=== PATIENT | female | born 1995 | race Caucasian/White ===

== ENCOUNTER 2023-09-27 17:08 | Emergency (ER) | payer BC, SELFPAY ==
[2023-09-27 17:10] VITALS: BP 123/90
[2023-09-27 17:24] VITALS: BP 131/74
[2023-09-27 17:25] VITALS: BMI 32.4
[2023-09-27 18:00] VITALS: BP 125/107
--- NOTE | 2023-09-27 18:16 | ED.GENMED ---
History of Present Illness
<ELAINE Hoyt - Last Filed: 09/27/23 21:42>
General
Chief Complaint: Abdominal Symptoms
Source: patient
Exam Limitations: none
Time Seen by Provider: 09/27/23 17:54
Travel History
Have you had any contact with someone who has COVID-19?: No
Do you have any symptoms of coronavirus? Fever > 100 degrees, chills, cough, shortness of breath, sore throat, loss of taste or smell, muscle aches, or headache?: No
History of Present Illness
History of Present Illness:
This is a 27 year old female that comes in with c/o abd pain and diarrhea. States that she has had diarrhea for the past 5 days. States that she went to see the PCP today and she felt that she was dehydrated and that she wanted her checked for
C-diff. State that she had taken Amoxicillin around the holidays for a sinus infection. States that she has pain in the abd which started on Sunday. States that she is occasionally nauseated and has been having diarrhea 12-14 times daily. States
that she also has a headache. Denies any fever, chills, chest pain, SOB, vomiting, dizziness, urinary burning.
Past History
<ELAINE Hoyt - Last Filed: 09/27/23 21:42>
Past History
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
ED Past Surgical History: None
Social History
Tobacco: Non-smoker
Alcohol: Occasional
Personal: Single
Living: with family
Review of Systems
<ELAINE Hoyt - Last Filed: 09/27/23 21:42>
Review of Systems
All Other Systems: ROS reviewed and negative except as documented in HPI and ROS
Constitutional: Reports no symptoms; Denies fever or chills
EENT: Reports no symptoms
Respiratory: Reports no symptoms; Denies cough or trouble breathing
Cardiac: Reports no symptoms; Denies chest pain
ABD/GI: Reports abdominal pain, nausea and diarrhea; Denies vomiting
: Reports no symptoms; Denies dysuria, frequency or urgency
Musculoskeletal: Reports no symptoms
Skin: Reports no symptoms
Neurological: Reports headache; Denies dizzy
Psychiatric: Reports no symptoms
Phy Exam
<ELAINE Hoyt - Last Filed: 09/27/23 21:42>
General Physical Exam
General Presentation: no apparent distress (Refused pain medication at this time. )
General age: appears stated age
General Skin: warm and dry
General Habitus: normal
General Mental: alert
General Hydration: appears well hydrated
ENT Exam
ENT Exam: TM's normal, pharynx normal and neck supple
Eye Exam
Eye Exam: EOMI
Cardiovascular Exam
Cardiovascular Exam: regular rate/rhythm, no edema, no murmur and normal peripheral pulses
Pulmonary Exam
Pulmonary Exam: lungs clear, no respiratory distress, no rales, chest non tender, no crackles, no rhonchi, no wheezing and no cough
Gastrointestinal Exam
Gastrointestinal Exam: normal bowel sounds, soft, no organomegaly, no pulsatile mass, non distended and tender (Left side abd lower abd tenderness with palpation)
Musculoskeletal Exam
Musculoskeletal Exam: full ROM and no edema
Skin Exam
Skin Exam: normal color, warm/dry, no rash and no petechia
Psychiatric Exam
Psychiatric Exam: normal mood/affect
Course
<ELAINE Hoyt - Last Filed: 09/27/23 21:42>
Orders/Labs/Results
Orders:
Orders
09/27/23 18:05
0.9% Sodium Chloride 1000 ml [Nss] 1,000 ml IV BOLUS
Test Result ONCE
09/27/23 18:06
CT Abd/Pel (IV only)-DH only Urgent
Comment:
Reason For Exam: Left sided abd pain,
09/27/23 18:17
Complete Blood Count/With Diff Urgent
Comprehensive Metabolic Panel Urgent
HCG, Serum Qualitative Screen Urgent
Lipase Urgent
Urinalysis Reflex To Culture Urgent
Date Specimen was Collected: 09/27/23
Time Specimen was Collected: 18:09
09/27/23 19:33
Stool Culture Urgent
SINA Source: Feces/Stool
Specimen Description:
Date Specimen was Collected: 09/27/23
Time Specimen was Collected: 19:31
Stool For WBC Urgent
SINA Source: Feces/Stool
Specimen Description:
Date Specimen was Collected: 09/27/23
Time Specimen was Collected: 19:31
09/27/23 19:34
STOOL [C difficile Antigen & Toxins] Urgent
SINA Source: Feces/Stool
Specimen Description:
Date Specimen was Collected: 09/27/23
Time Specimen was Collected: 19:31
09/27/23 21:35
Vancomycin HCl [Firvanq] 125 mg PO NOW STA
Abnormal Lab Results
09/27/23
18:17
WBC 13.4 H 10^3/uL
(4.8-10.8)
MCV 79.2 L fL
(81.0-99.0)
Absolute Neuts (auto) 9.2 H 10^3/uL
(1.4-6.5)
Absolute Monos (auto) 1.1 H 10^3/uL
(0.1-0.6)
Creatinine 0.4 L mg/dL
(0.6-1.0)
Glucose 69 L mg/dl
(70-99)
09/27/23 18:17
09/27/23 18:17
Leukocytosis, Glucose nonfasting. Urine negative for infection. HCG negative. Stool positive for C-diff
Vital Signs
Initial and Last Documented VS:
Initial Vital Signs
Temp Pulse Resp BP Pulse Ox
98.7 F 97 16 123/90 96
09/27/23 17:10 09/27/23 17:10 09/27/23 17:10 09/27/23 17:10 09/27/23 17:10
Last Documented Vital Signs
Temp Pulse Resp BP Pulse Ox
98.7 F 97 16 134/82 97
09/27/23 17:10 09/27/23 17:10 09/27/23 17:10 09/27/23 22:00 09/27/23 20:49
<Bryant Moreno, - Last Filed: 09/27/23 22:48>
Orders/Labs/Results
Orders:
Orders
09/27/23 18:05
0.9% Sodium Chloride 1000 ml [Nss] 1,000 ml IV BOLUS
Test Result ONCE
09/27/23 18:06
CT Abd/Pel (IV only)-DH only Urgent
Comment:
Reason For Exam: Left sided abd pain,
09/27/23 18:17
Complete Blood Count/With Diff Urgent
Comprehensive Metabolic Panel Urgent
HCG, Serum Qualitative Screen Urgent
Lipase Urgent
Urinalysis Reflex To Culture Urgent
Date Specimen was Collected: 09/27/23
Time Specimen was Collected: 18:09
09/27/23 19:33
Stool Culture Urgent
SINA Source: Feces/Stool
Specimen Description:
Date Specimen was Collected: 09/27/23
Time Specimen was Collected: 19:31
Stool For WBC Urgent
SINA Source: Feces/Stool
Specimen Description:
Date Specimen was Collected: 09/27/23
Time Specimen was Collected: 19:31
09/27/23 19:34
STOOL [C difficile Antigen & Toxins] Urgent
SINA Source: Feces/Stool
Specimen Description:
Date Specimen was Collected: 09/27/23
Time Specimen was Collected: 19:31
09/27/23 21:35
Vancomycin HCl [Firvanq] 125 mg PO NOW STA
Abnormal Lab Results
09/27/23
18:17
WBC 13.4 H 10^3/uL
(4.8-10.8)
MCV 79.2 L fL
(81.0-99.0)
Absolute Neuts (auto) 9.2 H 10^3/uL
(1.4-6.5)
Absolute Monos (auto) 1.1 H 10^3/uL
(0.1-0.6)
Creatinine 0.4 L mg/dL
(0.6-1.0)
Glucose 69 L mg/dl
(70-99)
09/27/23 18:17
09/27/23 18:17
Vital Signs
Initial and Last Documented VS:
Initial Vital Signs
Temp Pulse Resp BP Pulse Ox
98.7 F 97 16 123/90 96
09/27/23 17:10 09/27/23 17:10 09/27/23 17:10 09/27/23 17:10 09/27/23 17:10
Last Documented Vital Signs
Temp Pulse Resp BP Pulse Ox
98.7 F 97 16 134/82 97
09/27/23 17:10 09/27/23 17:10 09/27/23 17:10 09/27/23 22:00 09/27/23 20:49
Katlt;ELAINE Hoyt - Last Filed: 09/27/23 21:42>
MDM/Problems Addressed
Differential Diagnosis Includes:
Colitis, Diverticulitis
MDM/Problems Addressed:
This is a 27 year old female that comes in with c/o abd pain and diarrhea for the past 5 days. Patient went to the PCP today and was sent in for evaluation.
Will get labs and CT scan.
Back int see patient. Explained that she is positive for C-diff. Will start patient on Vancomycin and explained that she will take this Q6 hours for the next 14 days. Patient to follow up with the family doctor and with the GI specialist for
further evaluation. Will also give patient a prescription for Zofran to help with any nausea or vomiting. Patient to return with any fever, diarrhea that is not controlled or any other concerns.
Chronic conditions affecting care:
NA
Acute Exacerbation and/or Progression of Chronic Illness:
NA
<ELAINE Hoyt - Last Filed: 09/27/23 21:42>
*Radiology
Radiology exam reviewed: radiology read reviewed (CT - Mild small bowl wall thickening in the eft hemiabdomen suspicious for a mild infections/inflammatory enteritis. Borderline enlarge right lower quadrant mesenteric lymph nodes, likely reactive.
Cholelithiasis. )
*EKG
Interpreted by ED Provider?: NA
Rate: EKG- N/A
*Filler Shredder Helper Interpretation
Rate: Filler Shredder Helper- N/A
*Critical Care Note
Total Time (30-74mins, 75-104mins- exclusive of procedures): Not Applicable
ED Attending Note
<ELAINE Hoyt - Last Filed: 09/27/23 21:42>
-
Portions of this chart may have been created with voice recognition software.� Occasional wrong word or��sound alike� substitutions may have occurred due to the inherent limitations of voice recognition software.
<Bryant Moreno DO - Last Filed: 09/27/23 22:48>
ED Attending Note
I performed the substantive portion of visit, reviewed & personally made and approve the management plan that is documented in note by myself or MAHENDRA.: Yes
ED Attending Note:
1st time with cdiff...use PO vanco. outpt f/u. case d/w [facility]/.
Discharge Plan
Departure
Patient Disposition: Home (Routine Discharge)
Date of Disposition: 09/27/23
Time of Disposition: 21:33
Patient with high blood pressure during this ER visit?: No
Condition: Good
Covid-19: Not Applicable
Discharge Problem:
C. difficile diarrhea
Instructions: Clostridioides difficile (DC)
Prescriptions:
New
vancomycin 125 mg capsule
125 mg PO Q6H Qty: 56 0RF
ondansetron 4 mg tablet,disintegrating
4 mg PO Q8H PRN (Reason: nausea and vomiting) Qty: 10 0RF
Referrals:
Joceline Chong MD [Active] - Call in 1-3 days for appt
Mouna Capellan DO [Family Provider] - Call in 1-3 days for appt
Activity Restrictions/Additional Instructions:
As discussed, you are positive for C-diff. You have been started on Vancomycin which you will take every 6 hours for the next 14 days. Please increase your water intake to 8-8oz glasses daily. Banana's are binding. Chicken, rice and potatoes are
easily digested. Please stay away form Milk and milk products as they are hard for the gut to digest and will keep the diarrhea going. You should started to decrease in the amount of diarrhea that you have having. Please follow up with the family
doctor and the GI specialist for further evaluation if needed. IF YOU HAVE FEVER, ARE UNABLE TO KEEP ANYTHING DOWN OR THE DIARRHEA IS GETTING WORSE, PLEASE RETURN TO THE EMERGENCY ROOM.
Interventions
Interventions:
*Risk Screen - Suicide Last Done: 09/27/23 17:25
*General Assessment Last Done: 09/27/23 17:10
*Neglect/Abuse Screening Last Done: 09/27/23 17:25
ED- Fall Risk Assessment Last Done: 09/27/23 17:25
*ED COVID-19 Vaccine History Last Done: 09/27/23 17:10
*Nursing Disposition Last Done: 09/27/23 22:02
HG-Zhcrcf-Tvvecbfztd Assessment Last Done: 09/27/23 17:25
Discharge Date and Time
Discharge Date/Time: 09/27/23 22:04
[2023-09-27] MEDS: NSS 1000 IV (18:19)
[2023-09-27 18:40] LABS: % Basophils 0.4 % (0-2); % Eosinophils 1.6 % (0-6); % Immature Granulocytes 0.2 % (0-0.5); % Lymphocytes 20.7 % (20.5-51.1); % Monocytes 8.3 % (1.7-9.3); % Neutrophils 68.8 % (42.2-75.2); Absolute Basophils 0.1 10^3/uL (0-0.2); Absolute Eosinophils 0.2 10^3/uL (0-0.7); Absolute Lymphocytes 2.8 10^3/uL (1.2-3.4); Absolute Monocytes 1.1 10^3/uL (0.1-0.6); Absolute Neutrophils 9.2 10^3/uL (1.4-6.5); Hematocrit 38.9 % (37.0-47.0); Hemoglobin 13.9 g/dL (12.0-16.0); Mean Corp Hgb Conc. 35.7 g/dL (33.0-37.0); Mean Corpuscular Hgb 28.3 pg (27.0-31.0); Mean Corpuscular Volume 79.2 fL (81.0-99.0); Mean Platelet Volume 9.9 fL (7.4-10.4); Nucleated Red Blood Cells % 0 %; Platelet Count 365 10^3/uL (130-400); Red Blood Cell Count 4.91 10^6/uL (4.20-5.40); Red Cell Dist. Width 12.8 % (11.5-14.5); White Blood Cell Count 13.4 10^3/uL (4.8-10.8)
[2023-09-27 18:46] LABS: HCG, Serum Qualitative Screen Negative; Urine Albumin Negative (Neg - Trace); Urine Bilirubin Negative (Negative); Urine Character Slightly Cloudy (Clear); Urine Color Yellow; Urine Glucose Negative (Negative); Urine Ketone Negative (Negative); Urine Leukocyte Negative (Negative); Urine Nitrite Negative (Negative); Urine Occult Blood Negative (Negative); Urine Urobilinogen Negative (Neg - 1+); Urine pH 6.5 (5.0-9.0)
[2023-09-27 18:49] LABS: ALT (SGPT) 16 U/L (0-35); AST (SGOT) 25 U/L (14-36); Albumin 4.8 g/dl (3.5-5.0); Alkaline Phosphatase 79 U/L (38-126); Blood Urea Nitrogen 8 mg/dl (7-17); Calcium 9.5 mg/dl (8.4-10.2); Carbon Dioxide 24 mmol/L (22-30); Chloride 104 mmol/L (98-107); Estimated Creatinine Clearance 123 ml/min; Glucose 69 mg/dl (70-99); Lipase 99 U/L (23-300); Potassium 4.6 mmol/L (3.5-5.1); Sodium 138 mmol/L (135-145); Total Bilirubin 0.5 mg/dl (0.2-1.3); Total Protein 7.4 g/dl (6.3-8.2); eGFR > 60.00
[2023-09-27 19:33] VITALS: BP 118/72
[2023-09-27] MEDS: FIRVANQ 125 MG PO (21:49)
[2023-09-27 22:00] VITALS: BP 134/82
== END 2023-09-27 22:04 | disposition home or self-care (01) ==
LOC: EMR 17:08
PROVIDERS: Clinical Nurse Specialist Family Health; EMERGENCY PHYSICIAN Emergency Medicine; FAMILY PHYSICIAN Internal Medicine
DX: R19.7 Diarrhea, unspecified (principal); A04.72 Enterocolitis due to Clostridium difficile, not specified as recurrent; R51.9 Headache, unspecified; R11.0 Nausea; E28.2 Polycystic ovarian syndrome; Z88.2 Allergy status to sulfonamides
CPT/HCPCS: 99285; 96360; 74177; 80053; 81003; 83690; 84703; 85025; 87045; 87046; 87324; 87427; 87449; 89055; Q9967

== ENCOUNTER 2023-10-26 10:10 | Emergency (ER) | payer BC, SELFPAY ==
[2023-10-26 10:34] VITALS: BP 133/93
[2023-10-26 11:03] LABS: % Basophils 0.5 % (0-2); % Eosinophils 2.1 % (0-6); % Immature Granulocytes 0.3 % (0-0.5); % Lymphocytes 19.4 % (20.5-51.1); % Monocytes 6.8 % (1.7-9.3); % Neutrophils 70.9 % (42.2-75.2); Absolute Basophils 0.1 10^3/uL (0-0.2); Absolute Eosinophils 0.3 10^3/uL (0-0.7); Absolute Lymphocytes 2.6 10^3/uL (1.2-3.4); Absolute Monocytes 0.9 10^3/uL (0.1-0.6); Absolute Neutrophils 9.4 10^3/uL (1.4-6.5); Hematocrit 40.5 % (37.0-47.0); Hemoglobin 13.9 g/dL (12.0-16.0); Mean Corp Hgb Conc. 34.3 g/dL (33.0-37.0); Mean Corpuscular Volume 81.5 fL (81.0-99.0); Mean Platelet Volume 9.8 fL (7.4-10.4); Nucleated Red Blood Cells % 0 %; Platelet Count 329 10^3/uL (130-400); Red Blood Cell Count 4.97 10^6/uL (4.20-5.40); Red Cell Dist. Width 13.1 % (11.5-14.5); White Blood Cell Count 13.2 10^3/uL (4.8-10.8)
[2023-10-26 11:05] LABS: HCG, Serum Qualitative Screen Negative
[2023-10-26 11:11] LABS: ALT (SGPT) 14 U/L (0-35); AST (SGOT) 21 U/L (14-36); Albumin 4.5 g/dl (3.5-5.0); Alkaline Phosphatase 76 U/L (38-126); Blood Urea Nitrogen 10 mg/dl (7-17); Calcium 9.3 mg/dl (8.4-10.2); Carbon Dioxide 25 mmol/L (22-30); Chloride 103 mmol/L (98-107); Glucose 94 mg/dl (70-99); Potassium 4.4 mmol/L (3.5-5.1); Sodium 136 mmol/L (135-145); Total Bilirubin 0.6 mg/dl (0.2-1.3); eGFR > 60.00
[2023-10-26 11:59] LABS: Urine Albumin Negative (Neg - Trace); Urine Bilirubin Negative (Negative); Urine Character Clear (Clear); Urine Color Yellow; Urine Glucose Negative (Negative); Urine Ketone Negative (Negative); Urine Leukocyte Trace (Negative); Urine Nitrite Negative (Negative); Urine Occult Blood Negative (Negative); Urine Urobilinogen Negative (Neg - 1+)
--- NOTE | 2023-10-26 12:09 | ED.GENMED ---
History of Present Illness
General
Chief Complaint: Abdominal Pain
Source: patient
Exam Limitations: none
Time Seen by Provider: 10/26/23 12:07
Nursing documentation reviewed up to this point in time: agreed with
Travel History
Have you had any contact with someone who has COVID-19?: No
Do you have any symptoms of coronavirus? Fever > 100 degrees, chills, cough, shortness of breath, sore throat, loss of taste or smell, muscle aches, or headache?: No
History of Present Illness
History of Present Illness:
Patient is a 27-year-old female who presents to the ER complaining of diarrhea. She started Sunday noticing a change in her bowels and last night was up in [place] with 4-5 episodes of mucousy diarrhea. She has a history of C. difficile and was
treated for C. difficile 1 month ago. At that time she was on previous antibiotics. She does report however that the smell reminded her of C. difficile. She denies any recent antibiotic use. She denies any nausea vomiting fever chills. She
complains of mild lower abdominal discomfort/cramping.
In Review of records patient was seen here September 27 she also had a CAT scan which showed mild small bowel thickening of the left Roel abdomen suspicious for noninfectious inflammatory enteritis
Past History
Past History
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
ED Past Surgical History: None
Social History
Tobacco: Non-smoker
Alcohol: Occasional
Personal: Single
Living: with family
Review of Systems
Review of Systems
Allergies reviewed?: Yes
All Other Systems: ROS reviewed and negative except as documented in HPI and ROS
Constitutional: Reports no symptoms; Denies fever, fatigue or chills
EENT: Reports no symptoms
Respiratory: Reports no symptoms
Cardiac: Reports no symptoms
ABD/GI: Reports abdominal pain (lower abd discomfort/cramping ) and diarrhea; Denies nausea or vomiting
: Reports no symptoms; Denies flank pain, urgency or discharge
Musculoskeletal: Reports no symptoms
Skin: Reports no symptoms
Neurological: Reports no symptoms
Psychiatric: Reports no symptoms
Phy Exam
General Physical Exam
General Presentation: no apparent distress
General age: appears stated age
General Skin: warm and dry
General Habitus: normal
General Mental: alert
General Hydration: appears well hydrated
Gastrointestinal Exam
Gastrointestinal Exam: non tender and soft
Neurological Exam
Neurological Exam: alert and oriented x3
Musculoskeletal Exam
Musculoskeletal Exam: full ROM
Skin Exam
Skin Exam: normal color and warm/dry
Psychiatric Exam
Psychiatric Exam: normal mood/affect
Course
Orders/Labs/Results
Orders:
Orders
10/26/23 10:39
Test Result ONCE
10/26/23 10:47
CBC/With Diff [Complete Blood Count/With Diff] Urgent
CMP [Comprehensive Metabolic Panel] Urgent
HCG, Serum Qualitative Screen Urgent
10/26/23 11:40
Urinalysis Reflex To Culture Urgent
Date Specimen was Collected: 10/26/23
Time Specimen was Collected: 11:39
Urine Microscopic Reflex Cult Urgent
C difficile Antigen & Toxins Urgent
SINA Source: Feces/Stool
Specimen Description:
Date Specimen was Collected: 10/26/23
Time Specimen was Collected: 10:52
Stool Culture Urgent
SINA Source: Feces/Stool
Specimen Description:
Date Specimen was Collected: 10/26/23
Time Specimen was Collected: 10:52
Urine Culture Urgent
SINA Source: U
Specimen Description:
Date Specimen was Collected: 10/26/23
Time Specimen was Collected: 11:39
10/26/23 14:37
0.9% Sodium Chloride 1000 ml [Nss] 1,000 ml IV BOLUS
Abnormal Lab Results
10/26/23 10/26/23
10:47 11:40
WBC 13.2 H 10^3/uL
(4.8-10.8)
Absolute Neuts (auto) 9.4 H 10^3/uL
(1.4-6.5)
Absolute Monos (auto) 0.9 H 10^3/uL
(0.1-0.6)
Lymphocytes % 19.4 L %
(20.5-51.1)
Creatinine 0.5 L mg/dL
(0.6-1.0)
Leukocyte Esterase Rfl Trace A
(Negative)
Urine Bacteria (Reflex) Moderate A
(Negative)
10/26/23 10:47
10/26/23 10:47
Vital Signs
Initial and Last Documented VS:
Initial Vital Signs
Temp Pulse Resp BP Pulse Ox
99 F 85 16 133/93 98
10/26/23 10:34 10/26/23 10:34 10/26/23 10:34 10/26/23 10:34 10/26/23 10:34
Last Documented Vital Signs
Temp Pulse Resp BP Pulse Ox
98.4 F 77 16 131/78 99
10/26/23 14:34 10/26/23 14:34 10/26/23 14:34 10/26/23 14:34 10/26/23 14:34
MDM/Problems Addressed
Differential Diagnosis Includes:
not limited to: Viral syndrome, C. difficile, colitis
MDM/Problems Addressed:
Patient is a 27yr old female who presents back to the ER with diarrhea several episodes last night mucousy. She reports this smelled like her C. difficile in the past. Patient was treated September 27 for C. difficile. That time she was on
antibiotics prior to the diagnosis of C. difficile. She did complete vancomycin. She was fine until last night when diarrhea started back up again. Patient is positive for C. difficile here in the ER. She is afebrile white count minimally
elevated at 13.2. Is nontoxic abdomen soft nontender. With second episode of C. difficile ,I did speak with infectious disease on-call Dr. Judy Thomason who does recommend Dificid 200 mg twice daily for 5 days skip day 6 and then every other day
until medication is completed.
Patient is nontoxic-appearing looks well stable for discharge home. Medication sent to pharmacy.
163:[facility] has to order Dificid will be in for Sunday. Case reviewed again with Dr. Thomason who does recommend starting vancomycin 1.5 mg 4 times daily until Dificid becomes available. i reviewed all instructions with pt.
*Pulse Oximetry
Patient hypoxic: no
*Critical Care Note
Total Time (30-74mins, 75-104mins- exclusive of procedures): Not Applicable
Data Reviewed
Review of Other/Old Records Reveals: Labs, Radiology Studies and Other (Previous ED visit)
Source: patient
ED Attending Note
-
Portions of this chart may have been created with voice recognition software.� Occasional wrong word or��sound alike� substitutions may have occurred due to the inherent limitations of voice recognition software.
Discharge Plan
Departure
Patient Disposition: Home (Routine Discharge)
Date of Disposition: 10/26/23
Time of Disposition: 16:45
Patient with high blood pressure during this ER visit?: Yes
Condition: Fair
Covid-19: Not Applicable
Discharge Problem:
C. difficile diarrhea
Instructions: Clostridioides difficile (DC)
Prescriptions:
New
Dificid 200 mg tablet
200 mg PO Q12H Qty: 20 0RF
Rx Instructions:
200 mg twice daily for 5 days skip today 6 then take every other day until medication is completed
vancomycin 125 mg capsule
125 mg PO QID Qty: 20 0RF
No Action
vancomycin 125 mg capsule
125 mg PO Q6H Qty: 56 0RF
ondansetron 4 mg tablet,disintegrating
4 mg PO Q8H PRN (Reason: nausea and vomiting) Qty: 10 0RF
Referrals:
Mouna Capellan DO [Family Provider] -
Activity Restrictions/Additional Instructions:
As discussed, you were given a prescription for vancomycin to take daily until new medication, Dificid becomes available on Sunday.
Stop vancomycin when you start Dificid. Take Dificid as directed. Follow-up with family doctor and your GI specialist in the next several days and return if any worsening of symptoms include increased pain worsening diarrhea fever chills or any
further concerns.
Both medications were sent to [facility] [place].
Interventions
Interventions:
*Risk Screen - Suicide Last Done: 10/26/23 10:37
*General Assessment Last Done: 10/26/23 10:37
*Neglect/Abuse Screening Last Done: 10/26/23 10:37
ED- Fall Risk Assessment Last Done: 10/26/23 12:18
*ED COVID-19 Vaccine History Last Done: 10/26/23 12:17
QG-Bijrwm-Kmhpakdkyg Assessment Last Done: 10/26/23 12:18
[2023-10-26 12:16] VITALS: BMI 37.7
[2023-10-26 12:20] VITALS: BP 124/77
[2023-10-26 13:07] LABS: Urine Mucus Few; Urine Squamous Cell >30 /LPF (Few)
[2023-10-26 13:08] LABS: Urine Bacteria Moderate (Negative); Urine Red Blood Cell 0-2 /HPF (0-2); Urine White Cell 0-2 /HPF (0-5)
[2023-10-26 14:34] VITALS: BP 131/78
[2023-10-26] MEDS: NSS 1000 IV (14:39)
[2023-10-26] MEDS: FIRVANQ 125 MG PO (18:15)
[2023-10-26 18:17] VITALS: BP 122/68
== END 2023-10-26 18:18 | disposition home or self-care (01) ==
LOC: EMR 10:10
PROVIDERS: EMERGENCY PHYSICIAN Emergency Medicine; FAMILY PHYSICIAN Internal Medicine
DX: A04.72 Enterocolitis due to Clostridium difficile, not specified as recurrent (principal); R19.7 Diarrhea, unspecified; R10.9 Unspecified abdominal pain; L40.9 Psoriasis, unspecified; Z86.018 Personal history of other benign neoplasm; E28.2 Polycystic ovarian syndrome
CPT/HCPCS: 99283; 96360; 80053; 81003; 81015; 84703; 85025; 87045; 87046; 87086; 87324; 87427; 87449